=== PATIENT | male | born 1995 | race Hispanic/Latino ===

== ENCOUNTER 2017-01-02 20:21 | Emergency (ER) | payer SELFPAY ==
[~2017-01-02] VITALS: Ht 177.8 cm; Wt 70.5 kg
[2017-01-02 20:24] VITALS: BP 132/64; PULSE 80; RESP 16; O2SAT 100
--- NOTE | 2017-01-02 22:04 | ED.REPORT ---
HPI-Syncope Date of Service January 02, 2017 ED Provider: Alfie Xavier MD A healthy 21 year old male presents to the ED after a syncopal episode while his son, who was a patient in the ED, was being catheterized for urine. Per the nurse in the room, the patient became stiff then fell to the ground, hitting his head on the wall. The episode was preceded by dizziness. The patient returned to baseline mental status quickly and now reports a headache. He denies numbness, weakness, or other symptoms. The patient has had a similar syncopal episode in the past. Nursing Notes Stated Complaint: SYNCOPE Chief Complaint: General Complaint Nursing Notes Reviewed: Yes (Datahero, meds not reconciled) Allergies: Coded Allergies: No Known Allergies (Unverified Allergy, Unknown, 01/02/17) General Time Seen by Provider: 21:44 Chief Complaint Other (Syncope) Syncope Description: Same as prior, Single episode Hx Obtained From: Patient Arrived By: Walk-in Onset Occurred: Just prior to arrival Symptom Duration: Since onset Location: : Head Quality: Painful Severity: Current: Moderate Severity: Maximum: Moderate Pertinent Negative: Relieved by nothing Immunizations: Unknown Recent Healthcare: No recent doctor visit Similar Sx Previous: Yes Past Medical History Past Medical History None reported Past Surgical History denies Smoking History Never Smoker Social History Alcohol Use: "Social" Drug Use: Denies drug use, THC Other Social History: Good social support, Lives with children 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 Physical Exam Initial Vital Signs Vital Signs (First) Date Time Temp Pulse Resp B/P Pulse Ox O2 Delivery O2 Flow Rate FiO2 01/02/17 20:24 36.3 80 16 132/64 100 Room Air Initial VS: Reviewed, Vital signs normal Skin: Warm, Dry Psychiatric: Mood/affect normal, Behavior normal, Normal thought content General/Constitutional: Awake, Alert, No acute distress Respiratory / Chest: Breath sounds NL, Breath sounds = bilat, No respiratory distress Cardiovascular: Heart rate NL, Regular rhythm, Heart sounds NL Lower Extremity / Pelvis / MS: Atraumatic, Inspection NL Neurologic: Oriented X3, Speech NL, No motor deficits, No sensory deficits Head / Eyes: Atraumatic, Normocephalic ENT: Atraumatic, Airway patent Neck: Atraumatic, Supple, Full range of motion, No midline vertebral tend Interpretation & Diagnostics ECG Interpretation ECG Interpretation: Normal sinus rhythm rate 61, normal J-point elevation for age and fitness, no dysrhythmia, no markers of preexcitation syndrome, no Brugada syndrome Time: 22:06 Interpreted by: ED physician CT Head Interpretation CONCLUSION: Normal head CT. This report was transmitted to the ED at 01/02/2017 - 10:33:52 PM PDT Study: Head CT no contrast Interpretation / Wet Read by: Interpret - Radiologist Re-Eval/Medical Decision Med Decision/Clinical Course This is a 21-year-old healthy male who had a witnessed syncopal episode in the emergency department while the son was undergoing procedure. He had no antecedent symptoms, the , the nurse was concerned about a brief seizure as the patient did stiffen as he passed out and hit his head, however symptoms were very short duration, the patient had immediate recovery without postictal phase, and the entire presentation is classic for vasovagal syncope. Patient has had occasional vasovagal syncope over the years. Patient clinically appears well, he reports he did hit his head he does have a moderate headache, he has no additional complaints. His physical exam reveals minimal bruising to the posterior occiput, but no overt findings of a skull fracture, cervical spine injury, his lungs are clear, heart tones are normal-no murmurs. And his exam is normal otherwise. There is no bit tongue,, and again overall presentation is classic for vasovagal syncope rather than seizure. An EKG was obtained and was normal, given the head trauma direct that was obtained CT head was obtained and was negative. The patient's reassured, he is asymptomatic, routine precautions reviewed, the patient is discharged in good condition. Source of Hx: Old records Re-Evaluation/Progress : Time of Eval: 22:57 )( Re-Eval Neurologic Exam: Alert, Pt is back to baseline Patient Status: Condition improved Re-Evaluation/Progress Note: Discussed with patient CT results, diagnosis, and plan for discharge. Follow-up and return to the ER instructions given. Patient agrees with plan for care and all questions were addressed. Differential Diagnosis: Positive: Head trauma (Blunt), Vasovagal syncope, Negative: Abdominal aortic aneurysm, Acute coronary syndrome, Alcohol abuse, Arrhythmia, Cerebrovascular accident, Chest pain, acute, Dehydration, Dysrhythmia, Intracranial bleed, Malingering, Medication-induced, Meningitis, Pneumothorax, Prolonged QT syndrome, Pulmonary embolus, Seizure Counseled Regarding: Diagnosis, Need for follow-up, When/why to return to ED Discharge & Departure Impression: Primary Impression: Vasovagal syncope Disposition: Home Discharge Condition All VS Reviewed: Yes Condition: Improved Additional Instructions: 1. There were no findings of a seizure today. Her presentation and findings are classic for what is referred to as vasovagal syncope. 2. Your EKG and your CT scan of your head where he hit her head, were normal. 3. Activities as tolerated, no restrictions. 4. Return if there are new or worsening symptoms. Referrals: [facility] (PCP) [facility] Scribe Attestation Portions of this note were transcribed by Kika Alonzo. I, Dr. Xavier, personally performed the history, physical exam, and medical decision-making; I reviewed and confirmed the accuracy of the information in the transcribed note. Signed by: Penny Samano, 01/02/2017, 23:56 copies to: [facility] Alfie Xavier MD January 02, 2017 22:04 KIKA ALONZO January 02, 2017 22:58
[2017-01-02 23:11] VITALS: BP 126/68; PULSE 62; RESP 14; O2SAT 98
--- NOTE | 2017-01-03 03:19 | DRSVH ---
PROCEDURE: CT BRAIN WITHOUT CONTRAST ([id number]) INDICATIONS: head trauma TECHNIQUE: Noncontrast 4.5 mm thick angled axial sections acquired from the foramen magnum to the vertex, with c oronal reformats. COMPARISON: None. FINDINGS: Image quality: Excellent. CSF spaces: Basal cisterns are patent. No extra-axial fluid collections. Ventricles are normal in size and shape. Brain: No midline shift. No intracranial masses or hemorrhage. Bowie-white matter interface is norm al. Skull and face: Calvarium and visualized facial bones are intact, without suspicious lesions. Sinuses: Visualized sinuses and mastoids are clear. IMPRESSION: Normal for age. No trauma found. Note: These findings are concordant with the preliminary interpretation. Dictated by: Pancho Shetty M.D. on 01/03/2017 at 3:17 Approved by: Pancho Shetty M.D. on 01/03/2017 at 3:18
== END 2017-01-02 23:13 | disposition home or self-care (01) ==
LOC: SED 20:21
DX: R55 Syncope and collapse (principal); R51 Headache; W22.8XXA Striking against or struck by other objects, initial encounter; Y93.89 Activity, other specified; Y92.230 Patient room in hospital as the place of occurrence of the external cause; Y99.8 Other external cause status